=== PATIENT | male | born 1990 ===

== ENCOUNTER 2024-02-22 14:02 | Emergency (ER) | payer MEDICAID | END 2024-02-22 16:07 | disposition left against medical advice (07) | LOC: ER 14:03 | DX: T50.991A Poisoning by other drugs, medicaments and biological substances, accidental (unintentional), initial encounter (principal); Y92.89 Other specified places as the place of occurrence of the external cause; Z53.21 Procedure and treatment not carried out due to patient leaving prior to being seen by health care provider ==